=== PATIENT | female | born 1985 | race Caucasian/White ===

== ENCOUNTER 2021-09-22 22:24 | Emergency (ER) | payer OTHER ==
[~2021-09-22] VITALS: Ht 149.9 cm; Wt 68.9 kg
[2021-09-23] MEDS ORDERED: NAPROSYN500 MG PO (00:47)
[2021-09-23] MEDS ORDERED: CIPRO500 MG PO (00:48)
== END 2021-09-23 01:03 | disposition home or self-care (01) ==
LOC: FSED 23:45
DX: M54.50 Low back pain, unspecified (principal); R35.0 Frequency of micturition; E11.9 Type 2 diabetes mellitus without complications
CPT/HCPCS: 81003; 81025; 99282

== ENCOUNTER 2024-02-03 19:32 | Emergency (ER) | payer OTHER ==
[~2024-02-03] VITALS: Ht 149.9 cm; Wt 72.6 kg
[~2024-02-03 19:32] MED LIST: CIPRO500 MG PO; NAPROSYN500 MG PO
[2024-02-03 21:10] VITALS: PULSE 82; RESP 18; TEMP 98.1
[2024-02-03] MEDS ORDERED: TYLENOL325 MG PO (21:34)
[2024-02-03] MEDS ORDERED: KETOROLAC TROME10 MG PO (21:34)
[2024-02-03] MEDS ORDERED: ZANAFLEX4 MG PO (21:34)
[2024-02-03] MEDS: KETOROLAC TROMETHAMINE 30 MG/ML VIAL IM ONE (22:00)
[2024-02-03 23:00] VITALS: BP 138/97; PULSE 79; RESP 18; TEMP 98; O2SAT 98
[2024-02-04] MEDS: ACETAMINOPHEN 325 MG TAB PO ONE (05:58)
== END 2024-02-03 23:00 | disposition home or self-care (01) ==
LOC: FSED 19:38
DX: M54.41 Lumbago with sciatica, right side (principal); E11.9 Type 2 diabetes mellitus without complications; K76.0 Fatty (change of) liver, not elsewhere classified
CPT/HCPCS: 72131; 81003; 81025; 99283; J1885

== ENCOUNTER 2024-05-10 12:41 | Emergency (ER) | payer OTHER ==
[~2024-05-10] VITALS: Ht 149.9 cm; Wt 70.8 kg
[~2024-05-10 12:41] MED LIST changes: +KETOROLAC TROME10 MG PO; +TYLENOL325 MG PO; +ZANAFLEX4 MG PO
[2024-05-10] MEDS ORDERED: JARDIANCE25 MG (13:11)
[2024-05-10] MEDS ORDERED: NOVOLOG100 UNIT/1 SC (13:11)
[2024-05-10] MEDS ORDERED: LOSARTAN POTASS25 MG PO (13:11)
[2024-05-10] MEDS ORDERED: TRESIBA100 UNIT/1 (13:11)
[2024-05-10] MEDS: AMOXICILLIN/CLAVULANATE K 875 MG TAB PO STA (13:32)
[2024-05-10] MEDS: KETOROLAC TROMETHAMINE 60 MG/2 ML VIAL IM ONE (13:33)
[2024-05-10] MEDS ORDERED: AUGMENTIN 500-1 EACH PO (13:47)
[2024-05-10 13:57] VITALS: PULSE 85; RESP 16; TEMP 98.5; O2SAT 98
== END 2024-05-10 13:57 | disposition home or self-care (01) ==
LOC: FSED 12:47
DX: K08.89 Other specified disorders of teeth and supporting structures (principal); R68.84 Jaw pain; I10 Essential (primary) hypertension; E11.9 Type 2 diabetes mellitus without complications; Z86.73 Personal history of transient ischemic attack (TIA), and cerebral infarction without residual deficits
CPT/HCPCS: 96372; 99283; J1885